=== PATIENT | male | born 1970 | race Caucasian/White ===

== ENCOUNTER 2024-04-12 01:32 | Emergency (ER) | payer BC, SELFPAY ==
--- NOTE | 2024-04-12 01:51 | ED.GENADULT ---
HPI - General Adult General Chief complaint: Cardiac Arrest/CPR Stated complaint: cardiac arrest Time Seen by Provider: 04/12/24 01:38 History of Present Illness HPI narrative: Patient is a 53-year-old gentleman who presents emergency department with chief complaint of cardiac arrest. The patient apparently has been having chest discomfort/indigestion for the last 2 hours family noticed that he had been getting progressively worse discomfort in his chest and could not get comfortable. The patient then collapsed became unresponsive family reported that they started CPR on him and called 911 the patient vomited EMS arrived and started ACLS protocols the patient was intubated pre-hospital Review of Systems Review of Systems: A 10 system review of systems was completed on the patient and is negative except for what is stated in the HPI. Nursing and ancillary documentation was reviewed. Exam Narrative: GENERAL: Unresponsive CPR in progress. HEAD: Normocephalic, atraumatic. EYES: Pupils are dilated and unresponsive ENT: Nares clear, no rhinorrhea or epistaxis. Mucous membranes moist. Endotracheal tube present in the oropharynx NECK: Supple. CHEST: No spontaneous respirations,. HEART: No pulse external compression device providing CPR ABDOMEN: Soft, EXTREMITIES: No signs of trauma SKIN: Cool skin is mottled. NEURO: Unresponsive. PSYCH: Unresponsive Medical Decision Making [facility] Narrative Medical decision making narrative: Differential diagnosis includes dysrhythmia, ACS, sudden cardiac The patient was brought in with ACLS protocols in place and patient was intubated pre-hospital by EMS and IV access was not obtained pre-hospital via interosseous. ACLS protocols were continued the patient had asystole then did have a brief period of ventricular fibrillation that was treated with cardioversion and an additional 150 mg of amiodarone. On a the patient then went into asystole and remained asystole until being pronounced at 1:45 a.m. Discharge Plan Discharge Clinical Impression: Cardiac arrest Patient Disposition: Condition: Stable Time of Disposition: 01:45
--- NOTE | 2024-04-12 02:02 | PC.NURSE ---
Pt arrived to ED 0129. All ACLS protocol followed. EDP Dr. Petit at beside. 0130 EPI given IV PUSH 0132 Bicarb given IV push 0134 pulse check- pt vfib on monitor- pt shocked one time 0135 Compressions resumed 0135 Epi IVP 0136 150mg Amiodarone IVP 0137 pulse check- pt asystole 0139 Epi IVP 0141 pulse check- asystole 0143 Epi IVP 0145 Asystole
== END 2024-04-12 05:30 | disposition expired ==
PROVIDERS: Emergency Provider Emergency Medicine
DX: I46.9 Cardiac arrest, cause unspecified (principal)
CPT/HCPCS: 92950; 96374; 99285; J0171; J0282